=== PATIENT | female | born 1960 | race Caucasian/White ===

== ENCOUNTER → 2023-01-01 | Outpatient (CLI) | payer OTHER ==
[~2023-01-01] MED LIST: ACET65TA OR; CLARITIN PO; COUM1TAB18 OR; ENBREL AS ORDERED; METFORMIN PO; MULTLIQ7 PO; OYSTER SHELL PO; PERC5TAB8 OR; PLAVIX PO; PRAVASTATIN PO; PROV200T5 OR; TOPAMAX PO; TOPI100T OR; TRAMADOL PO; VITAMIN D PO
== END ==
LOC: M RAD 06:47
PROVIDERS: ATTEND Orthopaedic Surgery
DX: Z96.652 Presence of left artificial knee joint (principal)
CPT/HCPCS: 78315; A9503